=== PATIENT | female | born 1990 | race Caucasian/White ===

== ENCOUNTER → 2017-05-25 | Outpatient (CLI) | payer OTHER ==
--- NOTE | 2017-05-25 12:55 | XR ---
EXAMINATION TYPE: XR shoulder complete LT DATE OF EXAM: 05/25/2017 COMPARISON: NONE HISTORY: Pain TECHNIQUE: Shoulder examined in 3 views FINDINGS: The humeral head articulates with the glenoid. The acromio-clavicular junction is normal. No acute fractures or dislocations are evident. A follow up study can be performed 7-10 days from acute trauma for continued pain. IMPRESSION: 1. Normal Shoulder
== END | disposition home or self-care (01) ==
LOC: RADXRMAIN 08:42
PROVIDERS: ATTEND Family Medicine
DX: M25.512 Pain in left shoulder (principal)

== ENCOUNTER → 2019-03-22 | Outpatient (CLI) | payer OTHER ==
--- NOTE | 2019-03-22 09:43 | CT ---
EXAMINATION TYPE: CT sinus wo con DATE OF EXAM: 03/22/2019 COMPARISON: NONE HISTORY: Chronic sinusitis CT DLP: 599.80 mGycm. Automated Exposure Control for Dose Reduction was Utilized. TECHNIQUE: CT scan of the sinuses is performed without contrast, axial images are obtained, coronal r eformatted images are also reviewed. FINDINGS: There is mild polypoid mucosal thickening of the bilateral maxillary sinuses and nonpolypoi d mild mucosal thickening in the ethmoid sinuses. Frontal sinuses are hypoplastic but well aerated. C ircumferential moderate mucosal thickening of the right sphenoid sinus is seen with some inspissated debris. There are bilateral middle nasal turbinate yohannes bullosa. The right is filled with mucosal s ecretions. The left ostiomeatal complex is near completely excluded by mucosal thickening. The right ostium renal complex is patent. No Evin cells are seen. The globes are symmetric and lenses are in place. Extraocular muscles are unremarkable. Bowel brain i s suboptimally evaluated given technique and field of view. IMPRESSION: 1. Mild polypoid mucosal thickening of the maxillary sinuses. Circumferential moderate mucosal thicke matthew of the right sphenoid sinus. Mild ethmoid mucosal thickening. Hypoplasia of the frontal sinuses. 2. Bilateral nonobstructive yohannes bullosa, the right filled with mucosal secretions. 3. Near complete occlusion of the left ostiomeatal complex by mucosal thickening. 4. Leftward nasal septal deviation.
== END | disposition home or self-care (01) ==
LOC: RADCTMAIN 08:10
PROVIDERS: ATTEND Otolaryngology
DX: J32.0 Chronic maxillary sinusitis (principal); J34.89 Other specified disorders of nose and nasal sinuses; J34.2 Deviated nasal septum; M89.8X8 Other specified disorders of bone, other site
CPT/HCPCS: 70486

== ENCOUNTER → 2019-04-24 | Outpatient (CLI) | payer OTHER ==
--- NOTE | 2019-04-24 10:34 | US ---
EXAMINATION TYPE: US gallbladder DATE OF EXAM: 04/24/2019 COMPARISON: NONE CLINICAL HISTORY: 29-year-old female R10.11 right upper quadrant pain. Abdominal pain after eating fr esh fruits, not fatty foods. TECHNIQUE: Multiple sonographic images of the right upper quadrant are obtained. FINDINGS: EXAM MEASUREMENTS: Liver Length: 15.4 cm Gallbladder Wall: 0.1 cm CBD: 0.4 cm Right Kidney: 9.3 x 4.7 x 3.9 cm Pancreas: wnl Liver: wnl Gallbladder: wnl Evidence for sonographic [place]'s sign: no CBD: wnl Right Kidney: wnl IMPRESSION: Unremarkable sonographic examination of the right upper quadrant.
== END | disposition home or self-care (01) ==
LOC: RADUSMAIN 07:59
PROVIDERS: ATTEND Family Medicine
DX: R10.11 Right upper quadrant pain (principal)
CPT/HCPCS: 76705

== ENCOUNTER → 2021-03-02 | Outpatient (CLI) | payer OTHER ==
--- NOTE | 2021-03-02 15:56 | US ---
EXAMINATION TYPE: Transabdominal DATE OF EXAM: 03/02/2021 3:19 PM COMPARISON: NONE CLINICAL HISTORY: Z36.89 CONFIRM VIABILITY AND GESTATIONAL AGE. EXAM PERFORMED: Transabdominal (TA) EXAM MEASUREMENTS: GESTATIONAL AGE / DATING Physician Established: (8 weeks/5 days) EDC: 10/07/2021 Dates by First Scan: No previous this is first scan Dates by Current Scan for: (7 weeks/5 days) EDC: 10/14/2021 MATERNAL ANATOMY Uterus: 7.6 x 5.9 x 7.6 cm Right Ovary: 2.7 x 2.2 x 2.7 cm Left Ovary: 2.9 x 1.9 x 2.0 cm Post CDS / Adnexa: WNL Presence of free fluid: No Presence of subchorionic bleed: No GESTATION / SURVEY CRL: (7 weeks/5 days) MSD: Appears WNL Yolk Sac (normal less than 6mm): 0.31 cm Heart Rate: 170pm Rhythm: Normal IUP: Viable IUP Beta HcG (if available): Not available at this time Urinary bladder is sonolucent. IMPRESSION: 1. Single intrauterine gestation estimated at 7 weeks 5 days gestation based on the crown-rump length . Cardiac activity measures 170 bpm.
== END | disposition home or self-care (01) ==
LOC: RADUSWWP 14:48
PROVIDERS: ATTEND Obstetrics & Gynecology
DX: Z36.87 Encounter for antenatal screening for uncertain dates (principal); Z3A.01 Less than 8 weeks gestation of pregnancy
CPT/HCPCS: 76801

== ENCOUNTER 2021-10-07 05:45 | Inpatient (IN) | payer OTHER ==
--- NOTE | 2021-10-06 07:46 | P.HPOB ---
History of Present Illness H&P Date: 10/06/21 Chief Complaint: Polyhydramnios, for induction of labor This patient is a pleasant 31-year-old 2 para 0 female estimated date of confinement 10/14/2021 estimated gestational age 39-0/7 weeks who presents to labor and delivery for induction of labor secondary to polyhydramnios. Patient was found to be measuring big and had an ultrasound done 35 weeks which showed an FRANCOISE of 31 cm. Patient was subsequently referred to maternal- medicine and they confirmed polyhydramnios and did not find any structural defects. They did recommend delivery at 39 weeks. They also recommended that the fetus have an abdominal ultrasound postdelivery to look for pyloric stenosis. Patient's care otherwise has been uncomplicated. Review of Systems Genitourinary: Reports Menstruation: Reports amenorrhea Past Medical History Past Medical History: No Reported History History of Any Multi-Drug Resistant Organisms: None Reported Additional Past Surgical History / Comment(s): [place] teeth extracted. Patient's had sinus surgery. Past Anesthesia/Blood Transfusion Reactions: No Reported Reaction, Motion Sickness Past Psychological History: No Psychological Hx Reported Smoking Status: Never smoker Past Alcohol Use History: None Reported Past Drug Use History: None Reported - Past Family History Mother Family Medical History: No Reported History Medications and Allergies Home Medications Medication Instructions Recorded Confirmed Type Contol Pill 1 tab PO QAM 05/29/19 05/30/19 History Cetirizine HCl [Zyrtec] 10 mg PO QAM 05/29/19 05/30/19 History Dextroamphetamine/Amphetamine 20 mg PO QAM 05/29/19 05/30/19 History [Adderall] Nasal [place] 1 spray EA NOSTRIL QAM 05/29/19 05/30/19 History Allergies Allergy/AdvReac Type Severity Reaction Status Date / Time No Known Allergies Allergy Verified 05/30/19 10:00 Exam - OBG Physical Exam Abdomen: bowel sounds normal, no diffuse tenderness, no bruit present, no guarding noted, no hepatomegaly, no splenomegaly, no mass Vulva: both: normal Vagina: normal moisture, no discharge Cervix: no lesion (Cervix is 1-2 cm dilated in the office.), no discharge Uterus: enlarged (Fundal height 43 cm) Results labs show she is O positive, rubella immune, RPR nonreactive, hepatitis B was negative, HIV is nonreactive, Glucola was normal, group B strep was positive, ultrasounds per [facility] showed an estimated weight of 6 lbs. 4 oz. with an FRANCOISE of 30 cm. FRANCOISE is been as high is 37 cm. Assessment and Plan Assessment: This is a pleasant 31-year-old 2 para 0 female 39-0/7 weeks gestation admitted to labor and delivery for induction of labor secondary to polyhydramnios of unknown etiology. She also has positive group B strep culture. Plan is antibiotic prophylaxis, induction of labor, and anticipate vaginal delivery. I have discussed in detail the induction process with this patient including the risk of cord prolapse and malpresentation secondary to the polyhydramnios. All the patient's questions are answered and a written consent was obtained. (1) 39 weeks gestation of Status: Acute Code(s): Z3A.39 - 39 WEEKS GESTATION OF SNOMED Code(s): 61648042 (2) Polyhydramnios Status: Acute Code(s): O40.9XX0 - POLYHYDRAMNIOS, UNSP TRIMESTER, NOT APPLICABLE OR UNSP SNOMED Code(s): 44082196 (3) Carrier of group B Streptococcus Status: Acute Code(s): Z22.330 - CARRIER OF GROUP B STREPTOCOCCUS SNOMED Code(s): 8396678256059 (4) Encounter for induction of labor Status: Acute Code(s): Z34.90 - ENCNTR FOR SUPRVSN OF NORMAL , UNSP, UNSP TRIMESTER SNOMED Code(s): 615452993
[2021-10-07] MEDS ORDERED: OXYTOCIN 10 UNIT/ML 1 ML VIAL IM PRN (05:58)
[2021-10-07] MEDS ORDERED: TERBUTALINE 1 MG/ML VIAL SQ PRN (05:58)
[2021-10-07] MEDS ORDERED: LIDOCAINE 0.5% (PF) 5 MG/ML (50 ML SDV) SQ PRN (05:58)
[2021-10-07] MEDS ORDERED: OXYTOCIN 30 UNITS/500 ML NS 30 UNIT in SALINE 1 500ML.BAG IV SCH ×2 (05:58→22:45)
[2021-10-07] MEDS ORDERED: METHYLERGONOVINE 0.2 MG/ML 1 ML AMP IM PRN (05:58)
[2021-10-07] MEDS ORDERED: CARBOPROST TROMETHAMINE 250 MCG/ML 1 ML AMP IM PRN (05:58)
[2021-10-07] MEDS ORDERED: AMPICILLIN 2,000 MG in SODIUM CHLORIDE 0.9% 100 ML IVPB STA (06:00)
[2021-10-07] MEDS: LACTATED RINGERS 1,000 ML IV SCH ×4 (06:10→16:47)
[2021-10-07 06:32] LABS: HGB 12.1 gm/dL (11.4-16.0); Hypochromasia Slight; MCH 26.7 pg (25.0-35.0); MCHC 31.9 g/dL (31.0-37.0); MCV 83.6 fL (80.0-100.0); Mean Platelet Volume 8.7; Platelet Count 353 k/uL (150-450); RBC 4.55 m/uL (3.80-5.40); RDW 15.9 % (11.5-15.5)
[2021-10-07] MEDS ORDERED: BUTORPHANOL 1 MG/ML 1 ML VIAL IV PRN (08:16)
[2021-10-07 08:24] LABS: Eosinophils # (M) 0.18 k/uL (0-0.7); Lymphocytes # (M) 2.25 k/uL (1.0-4.8); Monocytes # (M) 0.27 k/uL (0-1.0); Neutrophils % (M) 70 %; Nucleated Red Blood Cells 0 /100 WBC (0-0); Total Cells Counted 100
[2021-10-07] MEDS: AMPICILLIN 1,000 MG in SODIUM CHLORIDE 0.9% 50 ML IVPB SCH ×3 (10:32→18:10)
[2021-10-07] MEDS ORDERED: ROPIVACAINE 100 MG, fentaNYL (PF). 200 MCG in SODIUM CHLORIDE 0.9% 76 ML EPIDURAL ONE (11:13)
[2021-10-07] MEDS ORDERED: ONDANSETRON 4 MG/2 ML VIAL IVP STA ×2 (16:58→20:06)
[2021-10-07] MEDS ORDERED: CITRIC ACID-SODIUM CITRATE 15 ML CUP PO ONE (21:20)
--- NOTE | 2021-10-07 21:35 | P.PN ---
Progress Note - Text Progress Note Date: 10/07/21 Patient over the last 4 hours has not progressed and head has not descended beyond 0 station. There is most likely due to the polyhydramnios most likely baby's asynclitic. Despite adequate labor, position changes it is evident that she has failure to progress. I discussed continued trial of labor versus delivery by section patient's request proceed with section at this time. I did discuss the risks and benefits of this surgery. All the patient's questions have been answered and a written consent obtained.
[2021-10-07] MEDS ORDERED: MORPHINE SULFATE (PF) 0.3 MG/0.3 ML SYR ONE (21:40)
[2021-10-07] MEDS ORDERED: ONDANSETRON 4 MG/2 ML VIAL ONE (21:40)
[2021-10-07] MEDS ORDERED: OXYTOCIN 30 UNITS/500 ML NS BAG IV ONE (21:40)
[2021-10-07] MEDS ORDERED: KETOROLAC 15 MG/ML 1 ML VIAL ONE (21:40)
[2021-10-07] MEDS ORDERED: METOCLOPRAMIDE 5 MG/ML 2 ML VIAL IVP PRN (22:34)
[2021-10-07] MEDS ORDERED: LANOLIN CREAM 5 GM TUBE TOPICAL PRN (22:34)
[2021-10-07] MEDS ORDERED: SIMETHICONE 80 MG CHEWABLE PO PRN (22:34)
[2021-10-07] MEDS ORDERED: diphenhydrAMINE 25 MG CAP PO PRN (22:34)
[2021-10-07] MEDS ORDERED: diphenhydrAMINE 50 MG/ML 1 ML VIAL IVP PRN (22:34)
[2021-10-07] MEDS ORDERED: ZOLPIDEM 5 MG TAB PO PRN (22:34)
[2021-10-07] MEDS ORDERED: NALOXONE 0.4 MG/ML 1 ML VIAL IV PRN (22:34)
[2021-10-07] MEDS ORDERED: ONDANSETRON 4 MG/2 ML VIAL IVP PRN (22:34)
--- NOTE | 2021-10-07 22:53 | P.OP ---
Date of Procedure: 10/07/21 Preoperative Diagnosis: #1: 39-0/7 week . #2: Polyhydramnios. #3: Positive group B strep. #4: Failure to progress in labor. Postoperative Diagnosis: #1: Same. #2: Occiput transverse presentation Procedure(s) Performed: Primary low transverse section Anesthesia: epidural Surgeon: Jack Roberts Welding Machine Operator Helper Gas #1: Corrie Taveras Estimated Blood Loss (ml): 770 Pathology: other (Placenta) Condition: stable Disposition: floor Indications for Procedure: Please see dictated H&P for intimate details of this patient's admission. Brief summary this is a pleasant 31-year-old 2 para 0 female estimated gestational age 39-0/7 weeks who presented to labor and delivery for induction of labor secondary to polyhydramnios. Patient is admitted and she is 2 cm dilated has artificial rupture membranes for clear fluid. Patient has copious amount of fluid throughout the day. She does get a dose of Stadol and then an epidural for pain control. Patient progresses to approximately 7-8 cm and 0 station however despite adequate labor and prolonged observation she does not progress any further. I did discuss these findings with the patient and we elected to proceed with section for delivery. Patient understands this surgery and risks and risks of infection, bleeding, possible injury bowel, bladder, vessels, and/or other organs. All the patient's questions are answered and a written consent is obtained. Operative Findings: This patient is a vigorous viable male Apgars are 8 and 9 delivery time is 2201 hrs. was occiput transverse presentation. Infant grossly appeared normal. Description of Procedure: This patient has a Tavarez catheter placed to straight drain. She is subsequently taken to the operating room where the epidural is dosed up for sufficient level of surgery. With an adequate level of anesthesia, she has abdominal prep and drape. Scalpels taken Pfannenstiel skin incision is then made. Second scalpel is taken down to the fascia and the fascia scored with a knife. Fascial incision extended bilaterally using the Villafuerte scissors. Fascia is then dissected off the rectus muscles sharply. Rectus muscles are peritoneum is identified and entered sharply. Peritoneal incision extended superior and inferior without difficulty. Bladder blade is then placed. Bladder peritoneum was taken sharply off the lower uterine segment. Scalpels and taken a low transverse uterine incision is made. Using a hemostat into the uterine cavity bluntly. There is loss of clear fluid. This incision is extended bluntly. 's found to be occiput transverse presentation. 's head was guided through the incision and with fundal pressure delivered easily. Mouth and nares are bulb suctioned. There is no evidence of a nuchal cord. With more fundal pressure delivered the rest this 's body. This is a vigorous viable male Apgars are 8 and 9 delivery time is 2201 hrs. infant has spontaneous respiration and good cry. After delivery of the the umbilical cord is doubly clamped and cut. It appears to be trivascular. The placenta is then manually extracted intact. Uterus is then externalized. Uterine incision demarcated with Lim clamps. The uterine incision is then closed using 0 Vicryl running locked fashion in 2 layers. The uterus is boggy and the lower uterine segment therefore she was given some IV Pitocin and one dose of Methergine. Bladder peritoneum was then reapproximated using a 3-0 Vicryl. Excellent hemostasis is noted. The uterus, tubes, ovaries appear normal for term gestation. Excess fluid is removed from the abdomen and pelvis. Uterus is then placed back into the abdomen. Parietal peritoneum was then identified and closed using 0 Vicryl running fashion. Rectus muscles reapproximated in 0 Vicryl interrupted fashion. The fascial incision is then closed using 0 PDS. Fascial incision is intact and hemostatic. Subcutaneous tissues and closed using a 3-0 Vicryl. Skin is and closed using nickolas. All counts are correct 3. There are no complications. and mother are stable delivery room and taken to the birthing suite in satisfactory condition.
[2021-10-07] MEDS ORDERED: HYDROmorphone PCA 10 MG/50 ML BAG IV PRN (23:30)
[2021-10-08] MEDS: METHYLERGONOVINE 0.2 MG TAB PO SCH ×3 (01:58→17:11)
[2021-10-08] MEDS: ACETAMINOPHEN TAB 500 MG TAB PO SCH ×3 (02:59→18:34)
[2021-10-08] MEDS: IBUPROFEN 600 MG TAB PO SCH ×4 (05:01→22:13)
--- NOTE | 2021-10-08 05:54 | P.PNOBGPC ---
Subjective - Subjective Patient reports: Reports appetite normal, Reports voiding normally, Reports pain well controlled, Reports ambulating normally : doing well Objective - Vital Signs Latest vital signs: Vital Signs Temp Pulse Resp BP Pulse Ox 10/08/21 04:00 98.1 F 64 16 114/72 10/08/21 00:33 98.8 F 93 16 113/61 100 10/08/21 00:03 104 H 16 117/68 99 10/07/21 23:33 105 H 16 126/70 98 10/07/21 23:18 98.8 F 101 H 16 125/73 96 10/07/21 23:03 98.8 F 96 16 121/73 99 10/07/21 22:58 100 10/07/21 22:48 107 H 16 118/75 100 10/07/21 22:34 99.0 F 99 16 112/57 100 10/07/21 07:13 96.7 F L 98 18 117/75 98 Intake and Output 10/07/21 10/07/21 10/08/21 14:59 22:59 06:59 Intake Total 1332.333 Output Total 770 1196 Balance 562.333 -1196 Intake: IV 1000 Intake, IV Titration 32.333 Amount Oxytocin 30 Units/500 ml 32.333 Ns 30 unit In Saline 1 500ml.bag @ Per Protocol IV .Q0M [facility] Rx#:[id number] Oral 300 Output: Urine 1000 Output, Quantitative 770 196 Blood Loss Other: Voiding Method Indwelling Catheter # Voids 1 Weight 95.254 kg - Exam Lungs: bilateral: normal Chest: Normal S1, Normal S2 Extremities: Present: normal Abdomen: Present: normal appearance, soft. Absent: distention, tenderness Incision: Present: normal, dry, intact Uterus: Present: normal, firm - Labs Labs: Abnormal Lab Results - Last 24 Hours (Table) 10/07/21 Range/Units 05:50 RDW 15.9 H (11.5-15.5) % Assessment and Plan Assessment: Postoperative day #1. Patient is resting without new complaints. Vital signs are stable she is afebrile. Uterus is firm nontender and her incision is intact and dry. She is having normal lochia. CBC is pending. My impression this is a normal postoperative course. Plan is to check CBC, continue antibiotics for 2 more doses, and advanced diet later today. 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 (1) 39 weeks gestation of Current Visit: No Status: Acute Code(s): Z3A.39 - 39 WEEKS GESTATION OF SNOMED Code(s): 62971119 (2) Polyhydramnios Current Visit: No Status: Acute Code(s): O40.9XX0 - POLYHYDRAMNIOS, UNSP TRIMESTER, NOT APPLICABLE OR UNSP SNOMED Code(s): 00004326 (3) Carrier of group B Streptococcus Current Visit: No Status: Acute Code(s): Z22.330 - CARRIER OF GROUP B STREPTOCOCCUS SNOMED Code(s): 4333071101805 (4) Encounter for induction of labor Current Visit: No Status: Acute Code(s): Z34.90 - ENCNTR FOR SUPRVSN OF NORMAL , UNSP, UNSP TRIMESTER SNOMED Code(s): 887886216
--- NOTE | 2021-10-08 06:13 | P.PN ---
Progress Note - Text Progress Note Date: 10/08/21 Patient doing well. Pain 4/10. Denies paresthesia or weakness. Denies pruritis or headache. Back - epidural site clean and dry POD#1 s/p w/ epidural duramorph - encourage ambulation
[2021-10-08] MEDS: KETOROLAC 15 MG/ML 1 ML VIAL IVP SCH (06:29)
[2021-10-08 08:12] LABS: Anisocytosis Slight; Basophils % (A) 0 %; Eosinophils % (A) 0 %; HCT 32.9 % (34.0-46.0); HGB 10.8 gm/dL (11.4-16.0); Hypochromasia Slight; Lymphocytes # (A) 1.3 k/uL (1.0-4.8); Lymphocytes % (A) 12 %; MCH 27.2 pg (25.0-35.0); MCHC 32.8 g/dL (31.0-37.0); MCV 83.2 fL (80.0-100.0); Mean Platelet Volume 7.2; Monocytes # (A) 0.4 k/uL (0-1.0); Monocytes % (A) 4 %; Neutrophils # (A) 9.5 k/uL (1.3-7.7); Neutrophils % (A) 84 %; Platelet Count 299 k/uL (150-450); RBC 3.96 m/uL (3.80-5.40); RDW 16.2 % (11.5-15.5); WBC 11.4 k/uL (3.8-10.6)
[2021-10-08] MEDS: SENNOSIDES-DOCUSATE SODIUM 1 EACH TAB PO SCH (08:19)
[2021-10-08] MEDS: LACTATED RINGERS 1,000 ML IV SCH (09:34)
[2021-10-09] MEDS: ACETAMINOPHEN TAB 500 MG TAB PO SCH ×5 (00:47→21:27)
[2021-10-09] MEDS: SENNOSIDES-DOCUSATE SODIUM 1 EACH TAB PO SCH ×3 (01:05→20:31)
[2021-10-09] MEDS: IBUPROFEN 600 MG TAB PO SCH ×3 (03:55→18:02)
--- NOTE | 2021-10-09 05:55 | P.PNOBGPC ---
Subjective - Subjective Patient reports: Reports appetite normal, Reports voiding normally, Reports pain well controlled, Reports ambulating normally : doing well Objective - Vital Signs Latest vital signs: Vital Signs Temp Pulse Resp BP Pulse Ox 10/09/21 00:00 98.5 F 73 17 103/59 10/08/21 20:00 98.1 F 72 17 108/58 97 10/08/21 16:00 98.3 F 102 H 18 101/68 97 10/08/21 12:00 98.5 F 95 14 109/67 10/08/21 08:00 98.1 F 98 16 108/61 96 Intake and Output 10/08/21 10/08/21 10/09/21 14:59 22:59 06:59 Output Total 475 200 Balance -475 -200 Output: Urine 475 200 Uretheral (Tavarez) 325 Other: # Voids 1 0 1 - Exam Lungs: bilateral: normal Chest: Normal S1, Normal S2 Extremities: Present: normal Abdomen: Present: normal appearance, soft. Absent: distention, tenderness Incision: Present: normal, dry, intact Uterus: Present: normal, firm - Labs Labs: Abnormal Lab Results - Last 24 Hours (Table) 10/08/21 Range/Units 07:34 WBC 11.4 H (3.8-10.6) k/uL Hgb 10.8 L (11.4-16.0) gm/dL Hct 32.9 L (34.0-46.0) % RDW 16.2 H (11.5-15.5) % Neutrophils # 9.5 H (1.3-7.7) k/uL Assessment and Plan Assessment: Postoperative day #2. Patient is resting without new complaints. Vital signs are stable she's afebrile. Uterus is firm nontender and she is having normal lochia. CBC yesterday was normal. Plan today is to continue routine care discharge home tomorrow. (1) 39 weeks gestation of Current Visit: No Status: Acute Code(s): Z3A.39 - 39 WEEKS GESTATION OF SNOMED Code(s): 72139225 (2) Polyhydramnios Current Visit: No Status: Acute Code(s): O40.9XX0 - POLYHYDRAMNIOS, UNSP TRIMESTER, NOT APPLICABLE OR UNSP SNOMED Code(s): 15393408 (3) Carrier of group B Streptococcus Current Visit: No Status: Acute Code(s): Z22.330 - CARRIER OF GROUP B STREPTOCOCCUS SNOMED Code(s): 2730378916834 (4) Encounter for induction of labor Current Visit: No Status: Acute Code(s): Z34.90 - ENCNTR FOR SUPRVSN OF NORMAL , UNSP, UNSP TRIMESTER SNOMED Code(s): 173144172
[2021-10-09] MEDS: KETOROLAC 15 MG/ML 1 ML VIAL IVP SCH ×2 (19:45→19:46)
[2021-10-09] MEDS: LACTATED RINGERS 1,000 ML IV SCH (19:47)
[2021-10-10 01:19] VITALS: PULSE 76; RESP 16; TEMP 98.2
[2021-10-10] MEDS: ACETAMINOPHEN TAB 500 MG TAB PO SCH ×2 (04:47→05:54)
[2021-10-10] MEDS: IBUPROFEN 600 MG TAB PO SCH ×2 (05:50→10:21)
--- NOTE | 2021-10-10 07:23 | P.PNOBGPC ---
Subjective - Subjective Patient reports: Reports appetite normal, Reports voiding normally, Reports pain well controlled, Reports ambulating normally : doing well Objective - Vital Signs Latest vital signs: Vital Signs Temp Pulse Resp BP 10/10/21 00:00 98.2 F 76 16 105/69 10/09/21 16:00 98.1 F 83 14 106/69 10/09/21 12:53 98.1 F 84 14 106/69 10/09/21 08:00 97.9 F 87 16 99/65 Intake and Output 10/09/21 10/10/21 10/10/21 22:59 06:59 14:59 Intake Total 480 Balance 480 Intake: Oral 480 Other: # Voids 1 1 # Bowel Movements 1 - Exam Lungs: bilateral: normal Chest: Normal S1, Normal S2 Extremities: Present: normal Abdomen: Present: normal appearance, soft. Absent: distention, tenderness Incision: Present: normal, dry, intact Uterus: Present: normal, firm Assessment and Plan Assessment: Postoperative day #3. Patient is resting without complaints. Vital signs are stable she's afebrile. Uterus is firm nontender she's having normal lochia. Her incision is intact and dry. My impression this is a normal course. Plan is to continue routine postop care and discharge home later today. (1) 39 weeks gestation of Current Visit: No Status: Acute Code(s): Z3A.39 - 39 WEEKS GESTATION OF SNOMED Code(s): 36850971 (2) Polyhydramnios Current Visit: No Status: Acute Code(s): O40.9XX0 - POLYHYDRAMNIOS, UNSP TRIMESTER, NOT APPLICABLE OR UNSP SNOMED Code(s): 94528424 (3) Carrier of group B Streptococcus Current Visit: No Status: Acute Code(s): Z22.330 - CARRIER OF GROUP B STREPTOCOCCUS SNOMED Code(s): 3196365155923 (4) Encounter for induction of labor Current Visit: No Status: Acute Code(s): Z34.90 - ENCNTR FOR SUPRVSN OF NORMAL , UNSP, UNSP TRIMESTER SNOMED Code(s): 754545296
--- NOTE | 2021-10-10 07:29 | P.DS ---
Providers Date of admission: 10/07/21 05:45 Expected date of discharge: 10/10/21 Attending physician: Jack Roberts Primary care physician: Stated None - Discharge Diagnosis(es) (1) 39 weeks gestation of Current Visit: No Status: Acute (2) Polyhydramnios Current Visit: No Status: Acute (3) Carrier of group B Streptococcus Current Visit: No Status: Acute (4) Encounter for induction of labor Current Visit: No Status: Acute Hospital Course: Please see dictated H&P for intimate details of this patient's admission. Brief summary this is a pleasant 31-year-old 2 para 0 female 39 weeks who is admitted to labor and delivery for induction of labor secondary to polyhydramnios. Patient is admitted she subsequently undergoes a primary low transverse section for failure to progress in labor. Please see dictated operative note. Postoperative patient does well was felt be stable for discharge home follow up with me in 1 week. Procedures: Induction of labor and primary low transverse section Patient Condition at Discharge: Good Plan - Discharge Summary New Discharge Prescriptions: New Ibuprofen [Motrin] 600 mg PO Q6H #40 tab oxyCODONE HCL [OxyIR] 5 mg PO Q4HR PRN #18 tab PRN Reason: Pain Scale 4 - 6 Discharge Medication List Ibuprofen [Motrin] 600 mg PO Q6H #40 tab 10/10/21 [Rx] oxyCODONE HCL [OxyIR] 5 mg PO Q4HR PRN #18 tab 10/10/21 [Rx] Follow up Appointment(s)/Referral(s): Jack Roberts MD [STAFF PHYSICIAN] - 11/16/21 11:15 am (Post Op appointment 10-19-2021 at 08:45 a.m.) Patient Instructions/Handouts: (DC) Activity/Diet/Wound Care/Special Instructions: No heavy lifting or strenuous activities for 6 weeks. No intercourse or anything per vagina for 6 weeks. Please call if any fever, chills, excessive vaginal bleeding, and/or abdominal pain. Discharge Disposition: HOME SELF-CARE
[2021-10-10 08:44] VITALS: BP 109/73
[2021-10-10] MEDS: SENNOSIDES-DOCUSATE SODIUM 1 EACH TAB PO SCH (10:21)
== END 2021-10-10 10:00 | disposition home or self-care (01) | DRG 788 ==
LOC: 4FBP 05:45
PROVIDERS: ADMIT Obstetrics & Gynecology; ATTEND Obstetrics & Gynecology
PROC: 10907ZC Drainage of Amniotic Fluid, Therapeutic from Products of Conception, Via Natural or Artificial Opening (ICD-10-PCS; 2021-10-07)
PROC: 4A0HXCZ Measurement of Products of Conception, Cardiac Rate, External Approach (ICD-10-PCS; 2021-10-07)
PROC: 3E033VJ Introduction of Other Hormone into Peripheral Vein, Percutaneous Approach (ICD-10-PCS; 2021-10-07)
PROC: 10D00Z1 Extraction of Products of Conception, Low, Open Approach (ICD-10-PCS; principal; 2021-10-07 22:01)
DX: O32.2XX0 Maternal care for transverse and oblique lie, not applicable or unspecified (principal); O99.824 Streptococcus B carrier state complicating childbirth; O40.3XX0 Polyhydramnios, third trimester, not applicable or unspecified; O62.0 Primary inadequate contractions; Z37.0 Single live birth; Z3A.39 39 weeks gestation of pregnancy
CPT/HCPCS: 85025; 86850; 86900; 86901; 88307